=== PATIENT | female | born 1940 | race Caucasian/White ===

== ENCOUNTER 2016-04-22 07:29 | Outpatient (CLI) | payer MEDICARE, MEDICAID | END 2016-04-22 23:59 | DX: N05.9 Unspecified nephritic syndrome with unspecified morphologic changes (principal); D70.9 Neutropenia, unspecified; D63.1 Anemia in chronic kidney disease; E83.30 Disorder of phosphorus metabolism, unspecified; R80.9 Proteinuria, unspecified; N25.81 Secondary hyperparathyroidism of renal origin ==

== ENCOUNTER 2016-05-08 07:32 | Outpatient (CLI) | payer MEDICARE, MEDICAID | END 2016-05-08 07:33 | DX: E11.41 Type 2 diabetes mellitus with diabetic mononeuropathy (principal) ==

== ENCOUNTER 2016-10-08 08:00 | Outpatient (CLI) | payer MEDICARE, MEDICAID ==
[2016-10-08 14:18] LABS: CALCIUM 9.7 mg/dL (8.5-10.3); CREATININE 2.4 mg/dL (0.4-1.0); POTASSIUM 4.3 mmol/L (3.5-5.0)
== END 2016-10-08 08:01 | disposition home or self-care (01) ==
LOC: LAB.N 08:00
PROVIDERS: ATTEND Internal Medicine Nephrology
DX: N05.9 Unspecified nephritic syndrome with unspecified morphologic changes (principal); I50.32 Chronic diastolic (congestive) heart failure; M10.00 Idiopathic gout, unspecified site
CPT/HCPCS: 36415; 80048; 83880; 84550

== ENCOUNTER 2017-04-08 13:14 | Outpatient (CLI) | payer MEDICARE, MEDICAID ==
[2017-04-08 19:08] LABS: HGB - HEMOGLOBIN 13.4 g/dL (12.0-16.0); MEAN CORPUSCULAR HEMOGLOBIN 32.8 pg (27.0-31.0); MEAN CORPUSCULAR HGB CONC 32.4 g/dL (32.0-36.0); MEAN CORPUSCULAR VOLUME 101.3 fL (81.0-99.0); MEAN PLATELET VOLUME 10.4 fL (7.9-10.8); RED BLOOD COUNT 4.07 10^6/uL (4.20-5.40); RED CELL DISTRIBUTION WIDTH 11.7 % (12.0-15.0); WHITE BLOOD COUNT 8.4 x10^3/uL (4.8-10.8)
[2017-04-09 10:34] LABS: CALCIUM 9.9 mg/dL (8.5-10.3); CREATININE 2.6 mg/dL (0.4-1.0); PHOSPHORUS 4.7 mg/dL (2.5-4.6); URIC ACID 5.4 mg/dL (2.6-7.2)
== END 2017-04-08 13:15 | disposition home or self-care (01) ==
LOC: LAB.N 13:14
PROVIDERS: ATTEND Internal Medicine Nephrology
DX: N05.9 Unspecified nephritic syndrome with unspecified morphologic changes (principal); I50.32 Chronic diastolic (congestive) heart failure; D70.9 Neutropenia, unspecified; D63.1 Anemia in chronic kidney disease; E83.30 Disorder of phosphorus metabolism, unspecified; N25.81 Secondary hyperparathyroidism of renal origin; M10.00 Idiopathic gout, unspecified site
CPT/HCPCS: 36415; 80048; 83880; 83970; 84100; 84550

== ENCOUNTER 2017-06-07 15:53 | Outpatient (CLI) | payer MEDICARE, MEDICAID ==
[2017-06-07 16:29] LABS: HGB - HEMOGLOBIN 13.1 g/dL (12.0-16.0); MEAN CORPUSCULAR HEMOGLOBIN 32.4 pg (27.0-31.0); MEAN CORPUSCULAR HGB CONC 32.4 g/dL (32.0-36.0); MEAN CORPUSCULAR VOLUME 100.2 fL (81.0-99.0); RED BLOOD COUNT 4.03 10^6/uL (4.20-5.40); RED CELL DISTRIBUTION WIDTH 11.5 % (12.0-15.0); WHITE BLOOD COUNT 7.1 x10^3/uL (4.8-10.8)
[2017-06-07 16:47] LABS: HB2 TOTAL 12.7 g/dL; HEMOGLOBIN A1C 0.6 g/dL; HEMOGLOBIN A1C % 6.5 % (4.6-6.2)
[2017-06-07 16:53] LABS: CALCIUM 10.3 mg/dL (8.5-10.3); CREATININE 2.4 mg/dL (0.4-1.0); PHOSPHORUS 4.8 mg/dL (2.5-4.6); URIC ACID 5.6 mg/dL (2.6-7.2)
== END 2017-06-07 15:54 | disposition home or self-care (01) ==
LOC: LAB 15:53
PROVIDERS: ATTEND Internal Medicine Nephrology
DX: N05.9 Unspecified nephritic syndrome with unspecified morphologic changes (principal); I50.32 Chronic diastolic (congestive) heart failure; E11.22 Type 2 diabetes mellitus with diabetic chronic kidney disease; D70.9 Neutropenia, unspecified; D63.1 Anemia in chronic kidney disease; E83.30 Disorder of phosphorus metabolism, unspecified; N25.81 Secondary hyperparathyroidism of renal origin; M10.00 Idiopathic gout, unspecified site
CPT/HCPCS: 36415; 80048; 83036; 83880; 83970; 84100; 84550

== ENCOUNTER 2017-12-28 08:00 | Outpatient (CLI) | payer MEDICARE, MEDICAID ==
[2017-12-28 13:58] LABS: HGB - HEMOGLOBIN 12.6 g/dL (12.0-16.0); MEAN CORPUSCULAR HGB CONC 33.4 g/dL (32.0-36.0); MEAN CORPUSCULAR VOLUME 101.7 fL (81.0-99.0); RED BLOOD COUNT 3.7 10^6/uL (4.20-5.40); RED CELL DISTRIBUTION WIDTH 11.9 % (12.0-15.0); WHITE BLOOD COUNT 6.6 x10^3/uL (4.8-10.8)
[2017-12-28 14:19] LABS: CALCIUM 9.5 mg/dL (8.5-10.3); CREATININE 2.2 mg/dL (0.4-1.0)
[2017-12-28 14:33] LABS: HB2 TOTAL 13.6 g/dL; HEMOGLOBIN A1C 0.6 g/dL; HEMOGLOBIN A1C % 6.2 % (4.6-6.2)
== END 2017-12-28 08:01 | disposition home or self-care (01) ==
LOC: LAB.N 08:00
PROVIDERS: ATTEND Internal Medicine Nephrology
DX: N05.9 Unspecified nephritic syndrome with unspecified morphologic changes (principal); E11.9 Type 2 diabetes mellitus without complications; D70.9 Neutropenia, unspecified; D63.1 Anemia in chronic kidney disease; M10.00 Idiopathic gout, unspecified site
CPT/HCPCS: 36415; 80048; 83036; 84550; 85027

== ENCOUNTER 2018-03-31 11:41 | Outpatient (CLI) | payer MEDICARE, MEDICAID ==
[2018-03-31 20:34] LABS: CALCIUM 10.2 mg/dL (8.5-10.3); CREATININE 2.6 mg/dL (0.4-1.0)
[2018-03-31 21:14] LABS: HB2 TOTAL 13.4 g/dL; HEMOGLOBIN A1C 1.1 g/dL; HEMOGLOBIN A1C % 9.7 % (4.6-6.2)
== END 2018-03-31 23:59 | disposition home or self-care (01) ==
LOC: LAB.N 11:41
PROVIDERS: ATTEND Nurse Practitioner Gerontology
DX: E11.41 Type 2 diabetes mellitus with diabetic mononeuropathy (principal)
CPT/HCPCS: 36415; 80048; 83036

== ENCOUNTER 2018-07-05 08:00 | Outpatient (CLI) | payer MEDICARE, MEDICAID ==
[2018-07-05 18:59] LABS: HGB - HEMOGLOBIN 12.9 g/dL (12.0-16.0); MEAN CORPUSCULAR HEMOGLOBIN 33.2 pg (27.0-31.0); MEAN CORPUSCULAR HGB CONC 32.9 g/dL (32.0-36.0); MEAN CORPUSCULAR VOLUME 100.7 fL (81.0-99.0); MEAN PLATELET VOLUME 9.6 fL (7.9-10.8); RED BLOOD COUNT 3.89 10^6/uL (4.20-5.40); RED CELL DISTRIBUTION WIDTH 11.4 % (12.0-15.0); WHITE BLOOD COUNT 8.5 x10^3/uL (4.8-10.8)
[2018-07-05 19:07] LABS: CALCIUM 9.8 mg/dL (8.5-10.3); CREATININE 2.3 mg/dL (0.4-1.0); PHOSPHORUS 3.8 mg/dL (2.5-4.6)
== END 2018-07-05 23:59 | disposition home or self-care (01) ==
LOC: LAB.N 08:00
PROVIDERS: ATTEND Internal Medicine Nephrology
DX: N05.9 Unspecified nephritic syndrome with unspecified morphologic changes (principal); D63.1 Anemia in chronic kidney disease; D70.9 Neutropenia, unspecified; E83.30 Disorder of phosphorus metabolism, unspecified; N25.81 Secondary hyperparathyroidism of renal origin
CPT/HCPCS: 36415; 80048; 83970; 84100; 85027

== ENCOUNTER 2018-07-21 14:43 | Outpatient (CLI) | payer MEDICARE, MEDICAID ==
[2018-07-21 19:57] LABS: CALCIUM 9.8 mg/dL (8.5-10.3); CREATININE 2.2 mg/dL (0.4-1.0)
[2018-07-22 19:20] LABS: HB2 TOTAL 13.8 g/dL; HEMOGLOBIN A1C 0.63 g/dL; HEMOGLOBIN A1C % 6.3 % (4.6-6.2)
== END 2018-07-21 23:59 | disposition home or self-care (01) ==
LOC: LAB.N 14:43
PROVIDERS: ATTEND Physician Assistant Medical
DX: E11.41 Type 2 diabetes mellitus with diabetic mononeuropathy (principal)
CPT/HCPCS: 36415; 80048; 81599; 83036

== ENCOUNTER 2018-11-04 18:31 | Outpatient (CLI) | payer MEDICARE, MEDICAID | END 2018-11-04 18:32 | disposition critical access hospital (66) | LOC: EMS 18:31 | PROVIDERS: ATTEND Surgery | DX: M25.571 Pain in right ankle and joints of right foot (principal); W18.39XA Other fall on same level, initial encounter; Y92.008 Other place in unspecified non-institutional (private) residence as the place of occurrence of the external cause | CPT/HCPCS: A0425; A0429 ==